=== PATIENT | male | born 1960 | race American Indian/Alaskan Native ===

== ENCOUNTER 2016-11-18 13:05 | Emergency (ER) | payer BC, OTHER ==
[2016-11-18 13:20] VITALS: TEMP 97; BMI 33.4
--- NOTE | 2016-11-18 13:48 | PDOC ---
History of Present Illness - General History Source: Patient Exam Limitations: No Limitations - History of Present Illness Initial Comments: 11/18/16 13:54 The patient is a 56 year old male, with a significant past medical history of NIDDM, hypothyroidism, and HTN, who presents to the emergency department with lightheadedness and dizziness that has been intermittent for about 3 weeks. He reports having an intermittent cough, going to [place] and discharged home with a Z-pack. He reports then developing dizziness and nausea soon after being discharged. He reports last week seeing his PCP where he was diagnosed with an ear infection, and given antibiotics for treatment. He denies any recent fevers , chills, or headache. He denies any recent vomit, diarrhea or constipation. He denies any recent chest pain or shortness of breath. He denies any recent dysuria, frequency, urgency or hematuria. Allergies: NKA. Seasonal allergies. Past surgical history: None reported. Social History: Former smoker. Denies EtOH use and recreational drug use. Primary Care Physician: <Marcelino Zhao - Last Filed: 11/18/16 13:57> <Ele Gonzalez - Last Filed: 11/18/16 16:31> <Katherine Gaming - Last Filed: 11/18/16 16:50> - General Chief Complaint: Lightheaded Stated Complaint: DIZINESS Time Seen by Provider: 11/18/16 13:36 Past History <Marcelino Zhao - Last Filed: 11/18/16 13:57> <Ele Gonzalez - Last Filed: 11/18/16 16:31> - Past Medical History Anemia: No Asthma: No Cancer: No Cardiac Disorders: Yes (irregular heart rate) CVA: No COPD: No CHF: No Dementia: No Diabetes: Yes GI Disorders: No Disorders: No HTN: Yes Hypercholesterolemia: Yes Liver Disease: No Seizures: No Thyroid Disease: Yes - Surgical History Abdominal Surgery: No Appendectomy: No Cardiac Surgery: No Cholecystectomy: Yes Lung Surgery: No Neurologic Surgery: No Orthopedic Surgery: No - Psycho/Social/Smoking Cessation Hx Anxiety: No Suicidal Ideation: No Smoking Status: Yes Smoking History: Former smoker Have you smoked in the past 12 months: No Number of Cigarettes Smoked Daily: 0 If you are a former smoker, when did you quit?: 1992 Cigars Per Day: 0 Information on smoking cessation initiated: No Hx Alcohol Use: No Drug/Substance Use Hx: No Substance Use Type: None Hx Substance Use Treatment: No <Katherine Gaming - Last Filed: 11/18/16 16:50> - Past Medical History Allergies/Adverse Reactions: Allergies Allergy/AdvReac Type Severity Reaction Status Date / Time No Known Allergies Allergy Verified 11/18/16 13:20 Home Medications: Ambulatory Orders Atorvastatin Ca [Lipitor] 10 mg PO HS 09/19/11 Carvedilol [Coreg] 25 mg PO BID 09/19/11 Diltiazem [Cardizem -] 240 mg PO DAILY 09/19/11 Levothyroxine [Synthroid -] 150 mcg PO DAILY 09/19/11 Losartan/Hydrochlorothiazide [Hyzaar 100-25 Tablet] 1 each PO DAILY 09/19/11 Metformin HCl [Glucophage Xr] 1,000 mg PO BID 09/19/11 Ranitidine Oral Solution [Zantac Oral Solution -] 150 mg PO BID 09/19/11 Spironolactone [Aldactone -] 25 mg PO DAILY 09/19/11 Insulin Aspart [Novolog] 16 unit SQ BID 11/18/16 Insulin Glargine,Hum.rec.anlog [Lantus Solostar PEN (NF)] 40 units SQ HS Review of Systems - Review of Systems Able to Perform ROS?: Yes Comments:: 11/18/16 13:54 CONSTITUTIONAL: Absent: fever, chills, diaphoresis, generalized weakness, malaise, loss of appetite HEENT: Absent: rhinorrhea, nasal congestion, throat pain, throat swelling, difficulty swallowing, mouth swelling, ear pain, eye pain, visual Changes CARDIOVASCULAR: +lightheadedness. Absent: chest pain, syncope, palpitations, irregular heart rate, peripheral edema RESPIRATORY: +cough. Absent: shortness of breath, dyspnea with exertion, orthopnea, wheezing , stridor, hemoptysis GASTROINTESTINAL: +nausea. Absent: abdominal pain, abdominal distension, vomiting, diarrhea, constipation, melena, hematochezia GENITOURINARY: Absent: dysuria, frequency, urgency, hesitancy, hematuria, flank pain, genital pain MUSCULOSKELETAL: Absent: myalgia, arthralgia, joint swelling SKIN: Absent: rash, itching, pallor HEMATOLOGIC/IMMUNOLOGIC: Absent: easy bleeding, easy bruising, lymphadenopathy, frequent infections ENDOCRINE: Absent: unexplained weight gain, unexplained weight loss, heat intolerance, cold intolerance NEUROLOGIC: +dizziness. Absent: headache, focal weakness or paresthesias, unsteady gait, seizure, mental status changes, bladder or bowel incontinence PSYCHIATRIC: Absent: anxiety, depression, suicidal or homicidal ideation, hallucinations. <CeceMarcelino - Last Filed: 11/18/16 13:57> *Physical Exam - Vital Signs Last Vital Signs Temp Pulse Resp BP Pulse Ox 97.0 F L 18 L 14 141/83 100 11/18/16 13:17 11/18/16 13:17 11/18/16 13:17 11/18/16 13:17 11/18/16 13:17 - Physical Exam Comments: 11/18/16 13:57 GENERAL: Well developed, well nourished. Awake and alert. No acute distress. HEENT: Fluid behind both TMs with no light reflect. Normocephalic, atraumatic. PERRLA, EOMI. No conjunctival pallor. Sclera are non-icteric. Moist mucous membranes. Oropharynx is clear. NECK: Supple. Full ROM. No JVD. Carotid pulses 2+ and symmetric, without bruits. No thyromegaly. No lymphadenopathy. CARDIOVASCULAR: Regular rate and rhythm. No murmurs, rubs, or gallops. Distal pulses are 2+ and symmetric. PULMONARY: No evidence of respiratory distress. Lungs clear to auscultation bilaterally. No wheezing, rales or rhonchi. ABDOMINAL: Soft. Non-tender. Non-distended. No rebound or guarding. No organomegaly. Normoactive bowel sounds. MUSCULOSKELETAL Normal range of motion at all joints. No bony deformities or tenderness. No CVA tenderness. EXTREMITIES: No cyanosis. No clubbing. No edema. No calf tenderness. SKIN: Warm and dry. Normal capillary refill. No rashes. No jaundice. NEUROLOGICAL: Alert, awake, appropriate. Cranial nerves 2-12 intact. No deficits to light touch and temperature in face, upper extremities and lower extremities. No motor deficits in the in face, upper extremities and lower extremities. Normoreflexic in the upper and lower extremities. Normal speech. Toes are down- going bilaterally. Gait is normal without ataxia. PSYCHIATRIC: Cooperative. Good eye contact. Appropriate mood and affect. <JulianeMarileeRodMarcelino - Last Filed: 11/18/16 13:57> - Vital Signs Last Vital Signs Temp Pulse Resp BP Pulse Ox 97.0 F L 18 L 14 141/83 100 11/18/16 13:17 11/18/16 13:17 11/18/16 13:17 11/18/16 13:17 11/18/16 13:17 <Ele Gonzalez - Last Filed: 11/18/16 16:31> - Vital Signs Last Vital Signs Temp Pulse Resp BP Pulse Ox 97.0 F L 18 L 14 141/83 100 11/18/16 13:17 11/18/16 13:17 11/18/16 13:17 11/18/16 13:17 11/18/16 13:17 <Katherine Gaming - Last Filed: 11/18/16 16:50> ED Treatment Course - LABORATORY CBC & Chemistry Diagram: 11/18/16 14:06 11/18/16 14:06 - ADDITIONAL ORDERS Additional order review: Laboratory Results 11/18/16 11/18/16 14:06 14:06 Sodium 136 Potassium 4.0 Chloride 97 L Carbon Dioxide 26 Anion Gap 13 BUN 20 H Creatinine 0.9 D Creat Clearance w eGFR > 60 Random Glucose 243 H D Calcium 9.7 Total Bilirubin 0.3 D AST 14 L ALT 35 Alkaline Phosphatase 80 Creatine Kinase 106 Troponin I < 0.02 Total Protein 7.2 Albumin 3.7 Urine Color Ltyellow Urine Appearance Clear Urine pH 5.0 Urine Protein Negative Urine Glucose (UA) 3+ H Urine Ketones Trace H Urine Blood Negative Urine Nitrite Negative Urine Bilirubin Negative Urine Urobilinogen Negative Ur Leukocyte Esterase Negative 11/18/16 14:06 RBC 4.59 MCV 90.6 MCHC 33.5 RDW 13.0 MPV 8.4 Neutrophils % 56.8 Lymphocytes % 30.2 Monocytes % 9.2 Eosinophils % 2.7 Basophils % 1.1 - RADIOLOGY Radiograph Interpretation: 11/18/16 16:31 EXAM#: TYPE/EXAM: RESULT: [id number] CT/HEAD CT WITHOUT CONTRAST Cranial CT without contrast Clinical information: neuro / altered mental status / headache There is no CT evidence of intracranial hemorrhage. No obvious mass lesion is seen on noncontrast imaging. There is no extra-axial fluid collection. No discrete infarct is noted within the limitations of CT. The ventricles and cisterns appear unremarkable. The partially imaged mastoid air cells and paranasal sinuses demonstrate no opacification. Impression: No CT evidence of acute intracranial pathology. Reported By: Darrick Euceda MD 11/18/16 [id number] - Medications Given in the ED: ED Medications Discontinued Medications Generic Name Dose Route Start Last Admin Trade Name Warren PRN Reason Stop Dose Admin Meclizine HCl 25 mg 11/18/16 14:12 11/18/16 14:23 Antivert - PO 11/18/16 14:13 25 mg ONCE ONE Administration <Ele Gonzalez - Last Filed: 11/18/16 16:31> - LABORATORY CBC & Chemistry Diagram: 11/18/16 14:06 11/18/16 14:06 <Katherine Gaming - Last Filed: 11/18/16 16:50> Medical Decision Making - Medical Decision Making 11/18/16 14:05 56yo mqale has had dizziness for 3 weeks, also some dizziness -her has seen his PCP in [facility] and placed on eardrops and antibiotics for inner ear infection. -.He stopped zithromax because he felt it caused insomnia he does have a h/o seasonal allergies and has had a cough for several weeks, No fever, no chills, no vomiting,no diarrhea -no headaches,no chest pain,no abd pain, no visual changes PMH IDDM,htm,hypothyroidism diff diag: benign positional vertigo due to labyrinthitis, less likely intracranil bleed - <Katherine Gaming - Last Filed: 11/18/16 16:50> *DC/Admit/Observation/Transfer - Attestations Scribe Attestion: 11/18/16 13:54 Documentation prepared by Marcelino Zhao, acting as medical record librarian for Katherine Gaming MD. <Marcelino Zhao - Last Filed: 11/18/16 13:57> <Ele Gonzalez - Last Filed: 11/18/16 16:31> <Katherine Gaming - Last Filed: 11/18/16 16:50> Diagnosis at time of Disposition: Vertigo TM (tympanic membrane disorder) Qualifiers: Laterality: bilateral Qualified Code(s): H73.93 - Unspecified disorder of tympanic membrane, bilateral - Discharge Dispostion Disposition: HOME Condition at time of disposition: Stable - Referrals Referrals: Cam Membreno [Primary Care Provider] - - Patient Instructions Printed Discharge Instructions: DI for Benign Paroxysmal Positional Vertigo Additional Instructions: please follow up with your physician
[2016-11-18] MEDS ORDERED: MECLIZINE HCL 25 MG TABLET (FP) PO ONE (14:12)
[2016-11-18] MEDS ORDERED: MECLIZINE HCL 25 MG TABLET (FP) ONE (14:15)
[2016-11-18 14:21] LABS: BASOPHIL 1.1 % (0-2.0); EOSINOPHIL 2.7 % (0-4.5); MCH 30.4 pg (25.7-33.7); MCHC 33.5 g/dl (32.0-35.9); MEAN CELL VOLUME 90.6 fl (80-96); MEAN PLT VOLUME 8.4 fl (7.5-11.1); NEUTROPHILS 56.8 % (42.8-82.8); PLATELET COUNT 232 K/MM3 (134-434)
[2016-11-18 14:48] LABS: ALBUMIN 3.7 g/dl (3.4-5.0); ANION GAP 13 (8-16); BILIRUBIN,TOTAL 0.3 mg/dL (0.2-1.0); CALCIUM 9.7 mg/dL (8.5-10.1); CO2 26 mmol/L (21-32); COCKROFT - GAULT 118.81; CREATININE 0.9 mg/dL (0.7-1.3); GLUCOSE,RANDOM 243 mg/dL (74-106); SGOT/AST 14 U/L (15-37); SGPT/ALT 35 U/L (12-78); TOT PROT 7.2 g/dl (6.4-8.2)
[2016-11-18 14:53] LABS: ALK PHOS 80 U/L (45-117); TROPONIN I < 0.02 ng/ml (0.00-0.05)
[2016-11-18 15:00] LABS: URINE APPEARANCE CLEAR; URINE BILIRUBIN NEGATIVE (NEGATIVE); URINE BLOOD NEGATIVE (NEGATIVE); URINE COLOR LTYELLOW; URINE GLUCOSE (UA) 3+ (NEGATIVE); URINE KETONE TRACE (NEGATIVE); URINE LEUK ESTERASE NEGATIVE (NEGATIVE); URINE NITRITE NEGATIVE (NEGATIVE); URINE PROTEIN NEGATIVE (NEGATIVE); URINE UROBILINOGEN NEGATIVE E.U./dl (0.2-1.0)
[2016-11-18] MEDS ORDERED: SODIUM CHLORIDE 500 ML IV STA (15:14)
[2016-11-18 16:04] LABS: INR 0.92 (0.82-1.09); PROTHROMBIN TIME (PATIENT) 10.1 SEC (9.98-11.88)
[2016-11-18 17:12] VITALS: BP 144/91; PULSE 75
--- NOTE | 2016-11-19 14:09 | EKG ---
Test Reason : Blood Pressure : / mmHG Vent. Rate : 069 BPM Atrial Rate : 069 BPM P-R Int : 176 ms QRS Dur : 102 ms QT Int : 396 ms P-R-T Axes : 039 -12 041 degrees QTc Int : 424 ms NORMAL SINUS RHYTHM NORMAL ECG WHEN COMPARED WITH ECG OF 14-DEC-2011 09:20, ST NO LONGER ELEVATED IN INFERIOR LEADS Confirmed by FABI SAINZ MD ([id number]) on 11/19/2016 2:09:21 PM Referred By: Confirmed By:FABI SAINZ MD
== END 2016-11-18 17:12 | disposition home or self-care (01) ==
LOC: JER 13:05
PROC: 3E0337Z Introduction of Electrolytic and Water Balance Substance into Peripheral Vein, Percutaneous Approach (ICD-10-PCS; principal; 2016-11-18)
DX: H73.93 Unspecified disorder of tympanic membrane, bilateral (principal); R42 Dizziness and giddiness; E11.9 Type 2 diabetes mellitus without complications; E03.9 Hypothyroidism, unspecified; E78.00 Pure hypercholesterolemia, unspecified; I10 Essential (primary) hypertension; I49.9 Cardiac arrhythmia, unspecified; Z87.891 Personal history of nicotine dependence; Z79.82 Long term (current) use of aspirin; Z79.84 Long term (current) use of oral hypoglycemic drugs
CPT/HCPCS: 36415; 70450-TC; 71010-TC; 80053; 81003; 82550; 84484; 85025; 85610; 93005; 93010; 99282-25